=== PATIENT | female | born 2000 | race Two or more races ===

== ENCOUNTER 2022-08-26 05:50 | Inpatient (IN) | payer OTHER ==
[2022-08-26] MEDS ORDERED: ELECTROLYTE-148 SOLN 500 ML IV ONE (06:15)
[2022-08-26] MEDS ORDERED: CITRIC ACID/SODIUM CITRATE 30 ML UNIT-DOSE CUP PO ONE (06:15)
[2022-08-26 06:42] VITALS: BMI 50.3
[2022-08-26] MEDS ORDERED: ELECTROLYTE-148 SOLN 500 ML IV SCH (06:45)
[2022-08-26] MEDS ORDERED: IBUPROFEN 600 MG TABLET (FP) PO PRN (08:02)
[2022-08-26] MEDS ORDERED: ACETAMINOPHEN 325 MG TABLET (FP) PO PRN ×2 (08:02→09:35)
[2022-08-26] MEDS ORDERED: ONDANSETRON 4 MG/2 ML VIAL IVPUSH PRN (08:02)
[2022-08-26] MEDS ORDERED: morphine SULFATE/PF 1 MG/2 ML (2cc Syringe - QUVA) ONE (08:09)
[2022-08-26] MEDS ORDERED: ELECTROLYTE-148 SOLN 1,000 ML IV SCH (08:15)
[2022-08-26] MEDS ORDERED: ePHEDrine SULFATE 50 MG/1 ML AMPULE ONE (08:21)
[2022-08-26] MEDS ORDERED: ceFAZolin SODIUM 1 GM VIAL ONE ×2 (08:29)
[2022-08-26] MEDS ORDERED: PHENYLEPHRINE HCL 10 MG/1 ML SINGLE DOSE VIAL ONE (08:30)
[2022-08-26] MEDS ORDERED: OXYTOCIN 20 UNITS in 0.9% NS 20 UNIT/1,000 ML INFUS.BAG IV ONE (09:33)
[2022-08-26] MEDS ORDERED: IBUPROFEN 800 MG/8 ML IJ IVPB PRN (09:35)
[2022-08-26] MEDS ORDERED: SENNOSIDES/DOCUSATE COMBO (SENNA PLUS) TABLET (UD) PO PRN (09:35)
[2022-08-26] MEDS ORDERED: METHYLERGONOVINE MALEATE 0.2 MG/1 ML AMP IM PRN (09:35)
[2022-08-26] MEDS ORDERED: ACETAMINOPHEN 1000 MG/100 ML BAG IVPB PRN (09:38)
[2022-08-26] MEDS: OXYTOCIN 20 UNITS in 0.9% NS 20 UNIT/1,000 ML INFUS.BAG IV SCH ×2 (10:00→17:38)
[2022-08-26 10:46] VITALS: RESP 18
[2022-08-26] MEDS: FERROUS SO4 325 MG TABLET (FP) PO SCH (12:43)
[2022-08-26] MEDS: PRENATAL VITAMINS W/ FOLIC ACID TABLET (FP) PO SCH (12:43)
[2022-08-26] MEDS ORDERED: oxyCODONE HCL 5 MG TABLET PO PRN (21:35)
[2022-08-27] MEDS: SIMETHICONE 80 MG TAB.CHEW (FP) PO PRN ×3 (03:09→23:10)
[2022-08-27] MEDS: IBUPROFEN 600 MG TABLET (FP) PO PRN ×2 (03:10→15:23)
[2022-08-27 08:20] LABS: BASO % 0.3 % (0-2.0); EOS % 0.7 % (0-4.5); HEMATOCRIT 32.2 % (32.4-45.2); HEMOGLOBIN 10.9 GM/dL (10.7-15.3); LYMPH % 13.7 % (8-40); MCHC 33.8 g/dl (32.0-36.0); MEAN CELL VOLUME 82.8 fl (80-96); MEAN PLT VOLUME 7.8 fl (7.5-11.1); MONO % 4.9 % (3.8-10.2); NEUT % 80.4 % (42.8-82.8); PLATELET COUNT 251 10^3/uL (134-434); RBC 3.88 M/mm3 (3.60-5.2); RDW 13.7 % (11.6-15.6); WHITE BLOOD COUNT 11.1 K/mm3 (4.0-10.0)
[2022-08-27] MEDS ORDERED: BISACODYL 10 MG SUPP.RECT RC PRN (09:35)
[2022-08-27] MEDS: FERROUS SO4 325 MG TABLET (FP) PO SCH (10:59)
[2022-08-27] MEDS: PRENATAL VITAMINS W/ FOLIC ACID TABLET (FP) PO SCH (10:59)
[2022-08-27] MEDS ORDERED: LOPERAMIDE HCL 2 MG CAPSULE PO PRN (18:29)
[2022-08-27] MEDS: oxyCODONE HCL 5 MG TABLET PO PRN (23:10)
[2022-08-28] MEDS: oxyCODONE HCL 5 MG TABLET PO PRN ×2 (04:21→22:49)
[2022-08-28] MEDS: SIMETHICONE 80 MG TAB.CHEW (FP) PO PRN ×2 (04:21→22:48)
[2022-08-28] MEDS: IBUPROFEN 600 MG TABLET (FP) PO PRN ×2 (09:34→18:20)
[2022-08-28] MEDS: PRENATAL VITAMINS W/ FOLIC ACID TABLET (FP) PO SCH (09:34)
[2022-08-28] MEDS: FERROUS SO4 325 MG TABLET (FP) PO SCH (09:34)
[2022-08-29] MEDS: SIMETHICONE 80 MG TAB.CHEW (FP) PO PRN (05:45)
[2022-08-29] MEDS: oxyCODONE HCL 5 MG TABLET PO PRN (05:45)
[2022-08-29] MEDS: FERROUS SO4 325 MG TABLET (FP) PO SCH (10:09)
[2022-08-29] MEDS: PRENATAL VITAMINS W/ FOLIC ACID TABLET (FP) PO SCH (10:09)
[2022-08-29 10:11] VITALS: BP 122/82; PULSE 89; TEMP 98.2
== END 2022-08-29 15:25 | disposition home or self-care (01) | DRG 540 ==
LOC: JLDR 05:50 → J3W 11:00
PROVIDERS: ADMIT Obstetrics & Gynecology; ATTEND Obstetrics & Gynecology
PROC: 10D00Z1 Extraction of Products of Conception, Low, Open Approach (ICD-10-PCS; principal; 2022-08-26)
DX: O36.5930 Maternal care for other known or suspected poor fetal growth, third trimester, not applicable or unspecified (principal); Z3A.39 39 weeks gestation of pregnancy; Z37.0 Single live birth
CPT/HCPCS: 36415; 80053; 85025; 85461; 85610; 85730; 86780; 86850; 86900; 86901; 87389; 87635; 88307-TC; 93970-TC; J2790